=== PATIENT | male | born 1960 | race Caucasian/White ===

== ENCOUNTER 2016-12-01 11:52 | Emergency (ER) | payer OTHER ==
[~2016-12-01] VITALS: Ht 193 cm; Wt 95.0 kg
[2016-12-01 15:04] VITALS: BP 140/86
== END 2016-12-01 15:07 | disposition home or self-care (01) ==
LOC: ER 12:30
DX: I25.10 Atherosclerotic heart disease of native coronary artery without angina pectoris (principal)
CPT/HCPCS: 70551; 99284